=== PATIENT | male | born 1980 | race Hispanic/Latino ===

== ENCOUNTER 2017-09-09 16:00 | Emergency (ER) | payer SELFPAY ==
--- NOTE | 2017-09-09 16:58 | RAD ---
LEFT ANKLE THREE VIEWS: 09/09/17 CLINICAL HISTORY: Injury. Pain. FINDINGS: There is a transversely oriented fibular tip fracture with overlying soft tissue swelling. There is m ild prominence of the medial aspect of the ankle mortise. IMPRESSION: Minimally displaced fibular tip fracture. Slight widening of the medial ankle mortise. POS: [facility]
== END 2017-09-09 17:43 | disposition home or self-care (01) ==
LOC: ERS 16:00
DX: S82.65XA Nondisplaced fracture of lateral malleolus of left fibula, initial encounter for closed fracture (principal); X50.1XXA Overexertion from prolonged static or awkward postures, initial encounter
CPT/HCPCS: 29515